=== PATIENT | female | born 2000 | race Caucasian/White ===

== ENCOUNTER 2022-04-15 21:12 | Emergency (ER) | payer OTHER ==
[2022-04-15 22:46] LABS: BASOPHIL 0.8 % (0-2); EOSINOPHIL 3.2 % (0-5); HCT 40.4 % (37.0-47.0); HGB 13.8 g/dl (12.5-16.0); LYMPHOCYTE 31.9 % (15-48); MCH 27.9 pg (25.0-31.0); MCHC 34.2 g/dL (32.0-36.0); MCV 81.8 fL (78.0-100.0); MONOCYTE 8.3 % (0-12); NEUTROPHIL 55.5 % (41-80); NRBC 0; PLT 248 K/uL (150-400); RBC 4.94 M/uL (4.20-5.40); RDW 12.2 % (11.5-14.0); WBC 9.3 K/uL (4.0-10.5)
[2022-04-15 23:04] LABS: ALBUMIN 3.8 g/dL (3.4-5.0); BILIRUBIN - TOTAL 0.4 mg/dL (0.2-1.0); BUN/CREAT RATIO (CALC) 21.6 RATIO; CREATININE 0.74 mg/dL (0.51-0.95); GLOBULIN (CALCULATION) 3.7 g/dL; POTASSIUM 3.2 mmol/L (3.5-5.1); TOTAL PROTEIN 7.5 g/dL (6.4-8.2)
[2022-04-15] MEDS ORDERED: VIBRAMYCIN100 MG PO (23:15)
[2022-04-15] MEDS ORDERED: PREDNISONE 20MG20 MG PO (23:17)
[2022-04-15] MEDS ORDERED: MAXI-TUSS AC L473 ML PO (23:17)
[2022-04-15 23:24] LABS: CORONAVIRUS 2019 SARS-COV-2 NEGATIVE (NEGATIVE); INFLUENZA A NAA NEGATIVE (NEGATIVE)
== END 2022-04-15 23:34 | disposition home or self-care (01) ==
LOC: FER 21:12
PROVIDERS: Internal Medicine
DX: J20.9 Acute bronchitis, unspecified (principal); F17.210 Nicotine dependence, cigarettes, uncomplicated; Z20.822 Contact with and (suspected) exposure to COVID-19
CPT/HCPCS: 36415; 36600; 80053; 82803; 84145; 85025; 85379; 94640; 94664; 96372; J1100; J2405; U0002